=== PATIENT | female | born 1995 | race American Indian/Alaskan Native ===

== ENCOUNTER 2017-05-17 12:15 | Emergency (ER) | payer SELFPAY ==
[2017-05-17 14:50] LABS: Bilirubin,Urine NEG (Negative); Blood,Urine NEG (Negative); Ketones,Urine NEG (Negative); Leukocyte Esterase,Urine MOD (Negative); Mucus,Urine FEW /HPF; Nitrite,Urine NEG (Negative); Protein,Urine <15 mg/dL mg/dL (Negative); Urobilinogen,Urine < 2.0 mg/dL (<2.0)
--- NOTE | 2017-05-17 15:50 | Cat Scan Report ---
CT scan of head without IV contrast: History: Hip pain. Findings: Ventricles are normal in size and midline in location. No evidence of acute ischemia, hemorrhage or mass. No extra axial fluid collection. Normal brainstem and cerebellum. Normal sinuses and mastoid air cells. Impression: Essentially negative CT scan of head.
[2017-05-17] MEDS ORDERED: MOTRIN PO ONE (16:47)
[2017-05-17] MEDS ORDERED: FIORICET PO ONE (16:47)
--- NOTE | 2017-05-17 17:59 | Emergency Department Report ---
ED Headache HPI - General Chief Complaint: Headache Stated Complaint: HYPERTENSIVE Time Seen by Provider: 05/17/17 16:36 Source: patient Exam Limitations: no limitations - History of Present Illness Initial Comments: 22-year-old female with no past medical history presents to ER with complaints of headache 3 days. Headache is constant and fluctuating in intensity. Currently is on the left frontal side of her head and her left neck. Pain is dull currently rated 3/10 in intensity. Not taking any medications for pain. No aggravating or alleviating factors. No photophobia, nausea, vomiting, focal weakness, numbness, or blurred vision. No complaints of recent head trauma or fever. Headache switches to either side over the last several days does not constant in the same area. Allergies/Adverse Reactions: Allergies No Known Allergies Allergy (Verified 05/17/17 13:20) Home Medications: Ambulatory Orders Butalb/Acetamin/Caff 50-325-40 [Fioricet] 1 tab PO Q6HR PRN #20 tab 05/17/17 Ibuprofen [Motrin] 800 mg PO Q8HR PRN #30 tablet 05/17/17 ED Review of Systems ROS: Stated complaint: HYPERTENSIVE Other details as noted in HPI Comment: All other systems reviewed and negative Other: Constitutional: No fevers chills Eyes: No eye pain visual changes ENT: No ear pain or throat pain Neck: as per hpi Respiratory: Denies cough wheezing shortness of breath Cardiovascular: Denies chest pain, palpitations, syncope GI: Denies abdominal pain, nausea, vomiting, diarrhea : Denies dysuri Musculoskeletal: Denies back pain Skin: Denies rash, lesions, erythema Neurologic: Denies hnumbness, weakness Psychiatric: Denies suicidal ideation, hallucinations ED Past Medical Hx - Past Medical History Previous Medical History?: No - Surgical History Past Surgical History?: No - Social History Smoking Status: Never Smoker Substance Use Type: None - Medications Home Medications: Home Medications Medication Instructions Recorded Confirmed Last Taken Type Butalb/Acetamin/Caff 50-325-40 1 tab PO Q6HR PRN #20 tab 05/17/17 Unknown Rx [Fioricet] Ibuprofen [Motrin] 800 mg PO Q8HR PRN #30 tablet 05/17/17 Unknown Rx ED Physical Exam - General Limitations: No Limitations - Other Other exam information: General: No limitations, patient is alert in no acute distress Head exam: Atraumatic, normocephalic Eyes exam: Normal appearance, pupils equal reactive to light, extraocular movements intact ENT: Moist mucous membrane, normal oropharynx. No sinus tenderness Neck exam: Normal inspection, full range of motion, no meningismus nontender. Mild tenderness to left trapezius muscle closer to shoulder Respiratory exam: Clear to auscultation bilateral, no wheezes, rales, crackles Cardiovascular: Normal rate and rhythm, normal heart sounds Abdomen: Soft, nondistended, and nontender, with normal bowel sounds, no rebound, or guarding Extremity: Full range of motion normal inspection no deformity Back: Normal Inspection, full range of motion, no tenderness Neurologic: Alert, oriented x3, cranial nerves intact, no motor or sensory deficit Psychiatric: normal affect, normal mood Skin: Warm, dry, intact ED Course Vital Signs 05/17/17 05/17/17 05/17/17 13:20 17:50 17:51 Temperature 98 F Pulse Rate 96 H Respiratory 16 16 16 Rate Blood Pressure 129/84 O2 Sat by Pulse 100 Oximetry - Reevaluation(s) Reevaluation #1: 05/17/17 17:58 Patient treated by Motrin and Fioricet ED Medical Decision Making - Radiology Data Radiology results: report reviewed (CT head: No acute finding) - Medical Decision Making Patient's headache is mild without any neurologic symptoms. CT head is negative. Patient discharged home with medications for headache and outpatient follow-up will be encouraged - Differential Diagnosis migraine, cluster headache, tension headache, SAH, mass Critical Care Time: No Critical care attestation.: If time is entered above; I have spent that time in minutes in the direct care of this critically ill patient, excluding procedure time. ED Disposition Clinical Impression: Headache Disposition: [id number] TO HOME OR SELFCARE Is pt being admited?: Yes Does the pt Need Aspirin: No Condition: Stable Instructions: Acute Headache (ED) Additional Instructions: Take the medication as needed for pain. Follow-up with your doctor or the doctor provided. Return if symptoms worsen. Prescriptions: Butalb/Acetamin/Caff 50-325-40 [Fioricet] 1 tab PO Q6HR PRN #20 tab PRN Reason: Headache Ibuprofen [Motrin] 800 mg PO Q8HR PRN #30 tablet PRN Reason: Pain Referrals: PRIMARY CARE, [Primary Care Provider] - 2-3 Days VIVI EMERY MD [Staff Physician] - 2-3 Days Time of Disposition: 18:00
[2017-05-17 19:01] VITALS: BP 131/75
== END 2017-05-17 18:05 | disposition home or self-care (01) ==
LOC: ED 12:15
DX: R51 Headache (principal)
CPT/HCPCS: 70450; 81001; 81025; 99284